=== PATIENT | female | born 1975 | race Two or more races ===

== ENCOUNTER 2016-07-19 01:51 | Emergency (ER) | payer MEDICAID, OTHER ==
[~2016-07-19] VITALS: Ht 154.9 cm; Wt 72.6 kg
[2016-07-19] MEDS ORDERED: KETOROLAC TROMETHAMINE 15 MG INJ IV ONE (02:15)
[2016-07-19] MEDS ORDERED: HYDROMORPHONE 1 MG/1 ML DISP.SYRIN IV ONE (02:15)
[2016-07-19] MEDS ORDERED: IV NORMAL SALINE 500 ML BAG IV ONE (02:15)
[2016-07-19] MEDS ORDERED: ONDANSETRON 4 MG/2 ML VIAL IV ONE (02:15)
[2016-07-19] MEDS ORDERED: ONDANSETRON 4 MG/2 ML VIAL ONE (02:32)
[2016-07-19] MEDS ORDERED: HYDROMORPHONE 1 MG/1 ML DISP.SYRIN ONE (02:32)
[2016-07-19] MEDS ORDERED: KETOROLAC TROMETHAMINE 30 MG INJ ONE (02:32)
[2016-07-19 02:44] LABS: ALANINE AMINOTRANSFERASE 18 U/L (14-59); ALBUMIN 3.8 g/dL (3.4-5.0); ALKALINE PHOSPHATASE 59 U/L (50-136); ASPARTATE AMINOTRANSFERASE 11 U/L (15-37); BILIRUBIN,DIRECT < 0.1 mg/dL (0.0-0.2); BILIRUBIN,TOTAL 0.2 mg/dL (0.2-1.0); CALCIUM 8.8 mg/dL (8.5-10.1); CARBON DIOXIDE 28 mmol/L (21-32); CHLORIDE 106 mmol/L (98-107); CREATININE 0.9 mg/dL (0.6-1.3); GFR 70 mL/min (>60); GLUCOSE 114 mg/dL (74-106); LIPASE 197 U/L (73-393); POTASSIUM 3.2 mmol/L (3.5-5.1); SODIUM SERUM 141 mmol/L (136-145); TOTAL PROTEIN, SERUM 7.2 g/dL (6.4-8.2); UREA NITROGEN, BLOOD 11 mg/dL (7-18)
[2016-07-19 02:45] LABS: BASOPHILS % (AUTO) 0.4 % (0.0-2.0); EOSINOPHILS # (AUTO) 0.4 K/uL (0.0-0.7); EOSINOPHILS % (AUTO) 4.1 % (0.0-7.0); HEMATOCRIT 35.8 % (37.0-47.0); HEMOGLOBIN 12.3 g/dL (12.0-16.0); LYMPHOCYTES # (AUTO) 3.1 K/uL (0.8-4.8); MEAN CORPUSCULAR HEMOGLOBIN 28.5 uug (27.0-31.0); MEAN CORPUSCULAR HGB CONC 34 g/dL (32.0-37.0); MEAN CORPUSCULAR VOLUME 83.1 fL (81.0-99.0); MONOCYTES # (AUTO) 0.6 K/uL (0.1-1.30); MONOCYTES % (AUTO) 5.9 % (0.0-11.0); NEUTROPHILS # (AUTO) 5.5 K/uL (1.8-8.9); NEUTROPHILS % (AUTO) 57.6 % (38.5-71.5); PLATELET COUNT (AUTO) 197 K/uL (150-450); RED CELL DISTRIBUTION WIDTH 13.5 % (11.5-14.5); WHITE BLOOD COUNT (AUTO) 9.6 K/uL (4.0-11.2)
[2016-07-19] MEDS ORDERED: POTASSIUM CHLORIDE 20 MEQ TAB.PRT.SR PO ONE (03:00)
[2016-07-19] MEDS ORDERED: POTASSIUM CHLORIDE 20 MEQ TAB.PRT.SR ONE (03:08)
--- NOTE | 2016-07-19 03:08 | NUR ---
Patient discharged to home in stable conditon. Written and verbal after care instructions given. Patient verbalizes understanding of instructions. Ambulated from ER with stable gait. All belongings with patient.
[2016-07-19 03:11] VITALS: BP 128/78
--- NOTE | 2016-07-19 03:12 | NUR ---
Patient will be driven home by daughter in private vehicle.
== END 2016-07-19 03:12 | disposition home or self-care (01) ==
LOC: ER 01:58
DX: K80.20 Calculus of gallbladder without cholecystitis without obstruction (principal); E87.6 Hypokalemia
CPT/HCPCS: 36415; 83690; 85025; A4663; J1170; J1885; J2405; J7030

== ENCOUNTER 2018-01-31 20:31 | Emergency (ER) | payer OTHER ==
[~2018-01-31] VITALS: Ht 157.5 cm; Wt 81.6 kg
[2018-01-31] MEDS ORDERED: ONDANSETRON 4 MG/2 ML VIAL ONE (21:14)
[2018-01-31] MEDS ORDERED: HYDROMORPHONE 1 MG/1 ML DISP.SYRIN ONE (21:14)
[2018-01-31] MEDS ORDERED: HYDROMORPHONE 1 MG/1 ML DISP.SYRIN IV ONE (21:15)
[2018-01-31] MEDS ORDERED: ONDANSETRON 4 MG/2 ML VIAL IV ONE (21:15)
[2018-01-31] MEDS ORDERED: IV NORMAL SALINE 1000 ML BAG IV ONE (21:15)
[2018-01-31 21:21] LABS: BASOPHILS # (AUTO) 0.1 K/uL (0.0-8.0); BASOPHILS % (AUTO) 0.5 % (0.0-2.0); EOSINOPHILS # (AUTO) 0.3 K/uL (0.0-0.7); EOSINOPHILS % (AUTO) 2.9 % (0.0-7.0); HEMATOCRIT 33.4 % (31.2-41.9); HEMOGLOBIN 11.1 g/dL (10.9-14.3); LYMPHOCYTES # (AUTO) 2.4 K/uL (20.0-40.0); MEAN CORPUSCULAR HEMOGLOBIN 27.5 uug (24.7-32.8); MEAN CORPUSCULAR HGB CONC 33 g/dL (32.3-35.6); MEAN CORPUSCULAR VOLUME 82.6 fL (75.5-95.3); MONOCYTES # (AUTO) 0.6 K/uL (2.0-10.0); MONOCYTES % (AUTO) 5.9 % (0.0-11.0); NEUTROPHILS # (AUTO) 6.8 K/uL (1.8-8.9); NEUTROPHILS % (AUTO) 66.7 % (38.5-71.5); PLATELET COUNT (AUTO) 224 K/uL (179-408); RED BLOOD CELL COUNT(AUTO) 4.05 MIL/uL (3.63-4.92); WHITE BLOOD COUNT (AUTO) 10.1 K/uL (3.8-11.8)
[2018-01-31 21:29] LABS: CARBON DIOXIDE 26 mmol/L (21-32); CHLORIDE 105 mmol/L (98-107); CREATININE 0.9 mg/dL (0.6-1.3); GLUCOSE 93 mg/dL (74-106); POTASSIUM 3.7 mmol/L (3.5-5.1); UREA NITROGEN, BLOOD 12 mg/dL (7-18)
[2018-01-31 21:35] LABS: ALANINE AMINOTRANSFERASE 48 U/L (14-59); ALKALINE PHOSPHATASE 64 U/L (50-136); ASPARTATE AMINOTRANSFERASE 19 U/L (15-37); BILIRUBIN,DIRECT < 0.1 mg/dL (0.0-0.2); BILIRUBIN,TOTAL 0.2 mg/dL (0.2-1.0); LIPASE 121 U/L (73-393); TOTAL PROTEIN, SERUM 7.2 g/dL (6.4-8.2)
[2018-01-31 21:37] LABS: *BILIRUBIN,URIN NEGATIVE (NEGATIVE); *BLOOD, URINE 1+ (NEGATIVE); *COLOR,URINE YELLOW (YELLOW); *KETONES,URINE NEGATIVE (NEGATIVE); *PROTEIN,URINE NEGATIVE (NEGATIVE); *URINE HCG, QUAL NEGATIVE (NEGATIVE); *UROBILINOGEN,URINE 0.2 E.U./dl (NORMAL); LEUKOCYTE ESTERASE ,URINE NEGATIVE (NEGATIVE); NITRITE, URINE NEGATIVE (NEGATIVE); PH,URINE 5.5 (5.0-8.0); UGLUCOSE NEGATIVE (NEGATIVE)
[2018-01-31 21:40] LABS: *CLARITY,URINE HAZY (CLEAR)
[2018-01-31 21:43] LABS: BACTERIA,URINE FEW /HPF (NONE SEEN); MUCUS,URINE FEW /LPF (0-FEW); SQUAMOUS EPITHELIAL CELL,UR MODERATE /HPF (NONE SEEN)
--- NOTE | 2018-01-31 21:53 | NUR ---
Patient to RADIOLOGY for CT via wheelchair.
--- NOTE | 2018-01-31 22:07 | NUR ---
Patient returned from RADIOLOGY, no acute distress noted.
--- NOTE | 2018-01-31 23:20 | NUR ---
Patient discharged to home in stable conditon. Written and verbal after care instructions given. Patient verbalizes understanding of instructions.
== END 2018-01-31 23:20 | disposition home or self-care (01) ==
LOC: ER 20:32
DX: K44.9 Diaphragmatic hernia without obstruction or gangrene (principal); M54.9 Dorsalgia, unspecified; F17.200 Nicotine dependence, unspecified, uncomplicated
CPT/HCPCS: 36415; 74176; 80048; 80076; 81001; 83690; 84703; 85025; 87086; 96374; 96375; 99285; J1170; J2405; A4663; J7030

== ENCOUNTER 2018-04-18 16:42 | Emergency (ER) | payer OTHER ==
[~2018-04-18] VITALS: Ht 154.9 cm; Wt 81.6 kg
--- NOTE | 2018-04-18 17:05 | NUR ---
DR VELASQUEZ AT THE BEDSIDE FOR MSE.
[2018-04-18 17:15] LABS: *BLOOD, URINE Trace-lysed (NEGATIVE); *CLARITY,URINE SLIGHTLY CLOUDY (CLEAR); *COLOR,URINE YELLOW (YELLOW); *KETONES,URINE 3+ (NEGATIVE); *PROTEIN,URINE 1+ (NEGATIVE); *URINE HCG, QUAL NEGATIVE (NEGATIVE); *UROBILINOGEN,URINE 0.2 E.U./dl (NORMAL); LEUKOCYTE ESTERASE ,URINE 2+ (NEGATIVE); NITRITE, URINE NEGATIVE (NEGATIVE); PH,URINE 5.5 (5.0-8.0); UGLUCOSE NEGATIVE (NEGATIVE)
[2018-04-18 17:23] LABS: *BILIRUBIN,URIN 1+ (NEGATIVE)
[2018-04-18] MEDS ORDERED: KETOROLAC TROMETHAMINE 30 MG INJ ONE (17:29)
[2018-04-18] MEDS ORDERED: KETOROLAC TROMETHAMINE 30 MG INJ IM ONE (17:30)
[2018-04-18 17:35] LABS: BACTERIA,URINE FEW /HPF (NONE SEEN); SQUAMOUS EPITHELIAL CELL,UR MODERATE /HPF (NONE SEEN); WBC,URINE 20-50 /HPF (0-3)
[2018-04-18] MEDS ORDERED: MORPHINE SULFATE 4 MG/1 ML DISP.SYRIN IM ONE (17:45)
[2018-04-18] MEDS ORDERED: MORPHINE SULFATE 4 MG/1 ML DISP.SYRIN ONE (17:48)
--- NOTE | 2018-04-18 18:07 | NUR ---
Patient discharged to home in stable conditon. Written and verbal after care instructions given. Patient verbalizes understanding of instructions.
[2018-04-18 18:08] VITALS: BP 123/77
== END 2018-04-18 18:09 | disposition home or self-care (01) ==
LOC: ER 16:43
DX: M54.9 Dorsalgia, unspecified (principal); F17.290 Nicotine dependence, other tobacco product, uncomplicated
CPT/HCPCS: 71045; 72100; 81001; 84703; 87086; 96372 ×2; 99284; 99406; J1885; J2270; 87077; A4663

== ENCOUNTER 2018-09-23 14:48 | Emergency (ER) | payer OTHER ==
[~2018-09-23] VITALS: Ht 165.1 cm; Wt 68.0 kg
[2018-09-23 15:09] LABS: *BILIRUBIN,URIN NEGATIVE (NEGATIVE); *CLARITY,URINE CLOUDY (CLEAR); *COLOR,URINE YELLOW (YELLOW); *KETONES,URINE TRACE (NEGATIVE); *UROBILINOGEN,URINE 0.2 E.U./dl (NORMAL); LEUKOCYTE ESTERASE ,URINE 1+ (NEGATIVE); NITRITE, URINE NEGATIVE (NEGATIVE); PH,URINE 5.5 (5.0-8.0); UGLUCOSE NEGATIVE (NEGATIVE)
[2018-09-23 15:13] LABS: *URINE HCG, QUAL NEGATIVE (NEGATIVE)
[2018-09-23] MEDS ORDERED: HYDROMORPHONE 1 MG/1 ML DISP.SYRIN IM ONE (15:15)
[2018-09-23] MEDS ORDERED: ONDANSETRON 4 MG/2 ML VIAL IM ONE (15:15)
[2018-09-23 15:19] LABS: *BLOOD, URINE TRACE (NEGATIVE)
[2018-09-23 15:21] LABS: BACTERIA,URINE MODERATE /HPF (NONE SEEN); MUCUS,URINE MODERATE /LPF (0-FEW); RBC,URINE 0-3 /HPF (0-3); SQUAMOUS EPITHELIAL CELL,UR MANY /HPF (NONE SEEN)
[2018-09-23] MEDS ORDERED: HYDROMORPHONE 2 MG/1 ML DISP.SYRIN ONE (15:25)
[2018-09-23] MEDS ORDERED: ONDANSETRON 4 MG/2 ML VIAL ONE (15:25)
--- NOTE | 2018-09-23 15:31 | NUR ---
Patient discharged to home in stable conditon. Written and verbal after care instructions given to patient. Patient verbalizes understanding of instructions.
== END 2018-09-23 15:35 | disposition home or self-care (01) ==
LOC: ER 14:48
DX: N39.0 Urinary tract infection, site not specified (principal); F17.200 Nicotine dependence, unspecified, uncomplicated
CPT/HCPCS: 81000; 81001; 84703; 96372 ×2; 99283; J1170; J2405; A4663

== ENCOUNTER 2018-09-24 15:43 | Emergency (ER) | payer OTHER ==
[~2018-09-24] VITALS: Ht 165.1 cm; Wt 68.0 kg
[2018-09-24] MEDS ORDERED: KETOROLAC TROMETHAMINE 30 MG INJ IM ONE (16:00)
[2018-09-24] MEDS ORDERED: CEFTRIAXONE 1 G VIAL IM ONE (16:00)
[2018-09-24] MEDS ORDERED: KETOROLAC TROMETHAMINE 60 MG INJ IM ONE (16:04)
[2018-09-24] MEDS ORDERED: CEFTRIAXONE 1 G VIAL ONE (16:04)
--- NOTE | 2018-09-24 16:06 | NUR ---
Patient discharged to home in stable conditon. Written and verbal after care instructions given. Patient verbalizes understanding of instructions. Ambulated from Er with stable gait. All belongings with patient.
[2018-09-24 16:07] VITALS: BP 117/71
== END 2018-09-24 16:12 | disposition home or self-care (01) ==
LOC: ER 15:44
DX: N12 Tubulo-interstitial nephritis, not specified as acute or chronic (principal); F17.200 Nicotine dependence, unspecified, uncomplicated
CPT/HCPCS: 96372 ×2; 99283; J0696; J1885; A4663

== ENCOUNTER 2020-10-10 17:33 | Emergency (ER) | payer MEDICAID, OTHER ==
[~2020-10-10] VITALS: Ht 154.9 cm; Wt 61.2 kg
--- NOTE | 2020-10-10 17:42 | NUR ---
Patient brought in by [id number] for bilateral rash to both lower extremities, patient does not appear to be ing any distress
--- NOTE | 2020-10-10 17:43 | NUR ---
MD at bedside for assessment, red circular areas noted to both lower legs
[2020-10-10] MEDS ORDERED: TRAM50TA2 PO (18:09)
[2020-10-10] MEDS ORDERED: NORCO PO (18:09)
[2020-10-10] MEDS ORDERED: KETOROLAC TROMETHAMINE 15 MG INJ ONE (18:43)
[2020-10-10] MEDS ORDERED: ACETAMINOPHEN ES 500 MG TABLET ONE (18:43)
[2020-10-10] MEDS ORDERED: ACETAMINOPHEN 325 MG TABLET PO ONE (19:00)
[2020-10-10] MEDS ORDERED: KETOROLAC TROMETHAMINE 15 MG INJ IM ONE (19:00)
[2020-10-10] MEDS ORDERED: MORPHINE SULFATE 4 MG/1 ML DISP.SYRIN IM ONE ×2 (19:15→20:00)
[2020-10-10] MEDS ORDERED: MORPHINE SULFATE 4 MG/1 ML DISP.SYRIN ONE ×2 (19:26→20:02)
[2020-10-10] MEDS ORDERED: NAPR500T6 PO (19:59)
[2020-10-10] MEDS ORDERED: MORPHINE SULFATE 2 MG/1 ML DISP.SYRIN ONE (20:02)
[2020-10-10 20:15] VITALS: BP 122/75
--- NOTE | 2020-10-10 20:15 | NUR ---
Patient discharged to home in stable condition. Written and verbal after care instructions given. Patient verbalizes understanding of instructions. Stressed follow up or return to ER for worsening s/s.
== END 2020-10-10 20:16 | disposition home or self-care (01) ==
LOC: ER 17:35
DX: M54.9 Dorsalgia, unspecified (principal); M54.2 Cervicalgia; G89.29 Other chronic pain; Z98.84 Bariatric surgery status
CPT/HCPCS: 96372 ×2; 99284; J1885; J2270 ×3; A4663; A9150

== ENCOUNTER 2021-05-05 22:48 | Emergency (ER) | payer MEDICAID ==
[~2021-05-05] VITALS: Ht 154.9 cm; Wt 63.5 kg
[~2021-05-05 22:48] MED LIST: NAPR500T6 PO; NORCO PO; TRAM50TA2 PO
[2021-05-05] MEDS ORDERED: MORPHINE SULFATE 4 MG/1 ML DISP.SYRIN ONE (23:59)
[2021-05-05] MEDS ORDERED: MORPHINE SULFATE 2 MG/1 ML DISP.SYRIN ONE (23:59)
[2021-05-06] MEDS ORDERED: MORPHINE SULFATE 4 MG/1 ML DISP.SYRIN IM ONE
[2021-05-06] MEDS ORDERED: ACETAMINOPHEN ES 500 MG TABLET PO ONE
[2021-05-06] MEDS ORDERED: KETOROLAC TROMETHAMINE 60 MG INJ IM ONE
[2021-05-06] MEDS ORDERED: HYDR-4209 PO (00:09)
[2021-05-06] MEDS ORDERED: NAPR-1164 PO (00:09)
== END 2021-05-06 00:15 | disposition home or self-care (01) ==
LOC: ER 22:57
DX: G89.29 Other chronic pain (principal); M54.50 Low back pain, unspecified; M54.2 Cervicalgia; F17.290 Nicotine dependence, other tobacco product, uncomplicated; Z79.899 Other long term (current) drug therapy
CPT/HCPCS: 96372 ×2; 99284; J1885; J2270 ×2; A4663; A9150

== ENCOUNTER 2021-05-10 19:58 | Emergency (ER) | payer MEDICAID ==
[~2021-05-10] VITALS: Ht 154.9 cm; Wt 63.5 kg
[~2021-05-10 19:58] MED LIST changes: +HYDR-4209 PO; +NAPR-1164 PO
--- NOTE | 2021-05-10 21:11 | NUR ---
Patient c/o worsening intermittent neck and back pain x1 week.
--- NOTE | 2021-05-10 21:25 | NUR ---
Dr. Grajeda on bedside for MSE.
[2021-05-10] MEDS ORDERED: HYDROMORPHONE 1 MG/1 ML DISP.SYRIN IM ONE (21:30)
[2021-05-10] MEDS ORDERED: ONDANSETRON ODT 4 MG TAB.RAPDIS SL ONE (21:30)
[2021-05-10] MEDS ORDERED: OXYC-128 PO (21:40)
--- NOTE | 2021-05-10 21:51 | NUR ---
Patient discharged to home in stable condition. Written and verbal after care instructions given. Patient verbalizes understanding of instructions. Stressed follow up or return to ER for worsening s/s. Patient ambulated from the ER with steady gait. All belongings with patient.
[2021-05-10] MEDS ORDERED: ONDANSETRON ODT 4 MG TAB.RAPDIS ONE (21:55)
[2021-05-10] MEDS ORDERED: HYDROMORPHONE 2 MG/1 ML DISP.SYRIN ONE (21:55)
[2021-05-10 22:02] VITALS: BP 140/73
== END 2021-05-10 21:51 | disposition home or self-care (01) ==
LOC: ER 19:59
DX: G89.29 Other chronic pain (principal); M54.50 Low back pain, unspecified; F17.290 Nicotine dependence, other tobacco product, uncomplicated; Z90.49 Acquired absence of other specified parts of digestive tract; Z79.899 Other long term (current) drug therapy
CPT/HCPCS: 96372; 99283; J1170; A4663; Q0162

== ENCOUNTER 2021-08-12 19:26 | Emergency (ER) | payer MEDICAID ==
[~2021-08-12] VITALS: Ht 157.5 cm; Wt 63.5 kg
[~2021-08-12 19:26] MED LIST changes: +OXYC-128 PO
--- NOTE | 2021-08-12 19:54 | NUR ---
pt ambulated to room 4b states she is here for chronic back pain.
--- NOTE | 2021-08-12 20:21 | NUR ---
Dr. Castro in room for PUNEET.
[2021-08-12] MEDS ORDERED: ACETAMINOPHEN ES 500 MG TABLET ONE (20:30)
[2021-08-12] MEDS ORDERED: KETOROLAC TROMETHAMINE 30 MG INJ IM ONE (20:30)
[2021-08-12] MEDS ORDERED: MORPHINE SULFATE 4 MG/1 ML DISP.SYRIN IM ONE (20:30)
[2021-08-12] MEDS ORDERED: KETOROLAC TROMETHAMINE 30 MG INJ ONE (20:30)
[2021-08-12] MEDS ORDERED: ACETAMINOPHEN ES 500 MG TABLET PO ONE (20:30)
[2021-08-12] MEDS ORDERED: MORPHINE SULFATE 4 MG/1 ML DISP.SYRIN ONE (20:31)
--- NOTE | 2021-08-12 20:57 | NUR ---
pt states she has less pain and is more comfortable.
[2021-08-12 20:58] LABS: *BILIRUBIN,URIN NEGATIVE (NEGATIVE); *BLOOD, URINE NEGATIVE (NEGATIVE); *CLARITY,URINE HAZY (CLEAR); *COLOR,URINE YELLOW (YELLOW); *KETONES,URINE 1+ (NEGATIVE); *UROBILINOGEN,URINE 0.2 E.U./dl (NORMAL); LEUKOCYTE ESTERASE ,URINE 1+ (NEGATIVE); NITRITE, URINE NEGATIVE (NEGATIVE); PH,URINE 5.5 (5.0-8.0); UGLUCOSE NEGATIVE (NEGATIVE)
[2021-08-12 21:09] LABS: *URINE HCG, QUAL NEGATIVE (NEGATIVE); BACTERIA,URINE FEW /HPF (NONE SEEN); RBC,URINE 0-3 /HPF (0-3); SQUAMOUS EPITHELIAL CELL,UR MODERATE /HPF (NONE SEEN)
[2021-08-12] MEDS ORDERED: HYDR-4209 PO (23:06)
[2021-08-12] MEDS ORDERED: NAPR-1164 PO (23:06)
[2021-08-12 23:22] VITALS: BP 130/70
== END 2021-08-12 23:22 | disposition home or self-care (01) ==
LOC: ER 19:27
DX: M54.50 Low back pain, unspecified (principal); G89.29 Other chronic pain; F17.210 Nicotine dependence, cigarettes, uncomplicated; Z98.84 Bariatric surgery status
CPT/HCPCS: 81001; 84703; 87086; 96372 ×2; 99284; J1885; J2270; A4663; A9150

== ENCOUNTER 2021-11-04 18:06 | Emergency (ER) | payer SELFPAY ==
--- NOTE | 2021-11-04 18:32 | NUR ---
1ST CALL NO ANSWER.
--- NOTE | 2021-11-04 18:54 | NUR ---
2ND CALL NO ANSWER
--- NOTE | 2021-11-04 19:03 | NUR ---
3RD CALL NO ANSWER. PATIENT LEFT WITHOUT BEING TRAIGED.
[2021-11-05] MEDS ORDERED: FERR325T23 PO (00:54)
[2021-11-05] MEDS ORDERED: OXYC-128 PO (00:54)
[2021-11-05] MEDS ORDERED: ONDA4TAB5 PO (00:54)
== END 2021-11-04 19:04 | disposition left against medical advice (07) ==
LOC: ER 18:13
DX: Z53.21 Procedure and treatment not carried out due to patient leaving prior to being seen by health care provider (principal)

== ENCOUNTER 2021-11-04 20:48 | Emergency (ER) | payer MEDICAID ==
[~2021-11-04] VITALS: Ht 162.6 cm; Wt 65.8 kg
--- NOTE | 2021-11-04 21:52 | NUR ---
pt in room 4 b c/o back pain.
--- NOTE | 2021-11-04 22:34 | NUR ---
Dr. Grajeda at bedside for MSE.
[2021-11-04] MEDS ORDERED: KETOROLAC TROMETHAMINE 30 MG INJ IVP ONE (22:45)
[2021-11-04] MEDS ORDERED: diphenhydrAMINE 50 MG/1 ML VIAL IV ONE (22:45)
[2021-11-04] MEDS ORDERED: IV NS 1000 ML 1,000 ML IV ONE (22:45)
[2021-11-04] MEDS ORDERED: METOCLOPRAMIDE HCL 10 MG/2 ML VIAL IV ONE (22:45)
--- NOTE | 2021-11-04 22:56 | NUR ---
attempted iv x2 pt with small veins 22 g iv. pt does not want an iv. informed Dr. Grajeda.
[2021-11-04] MEDS ORDERED: diphenhydrAMINE 25 MG CAP PO ONE ×2 (23:00→23:01)
[2021-11-04] MEDS ORDERED: METOCLOPRAMIDE HCL 10 MG TABLET PO ONE (23:00)
[2021-11-04] MEDS ORDERED: KETOROLAC TROMETHAMINE 60 MG INJ IM ONE ×2 (23:00→23:02)
[2021-11-04] MEDS ORDERED: METOCLOPRAMIDE HCL 10 MG TABLET ONE (23:01)
--- NOTE | 2021-11-04 23:06 | NUR ---
meds were given po and im. as pt declined further iv attempt.
[2021-11-05 00:08] LABS: MEAN CORPUSCULAR HEMOGLOBIN 20.5 uug (24.7-32.8); MEAN CORPUSCULAR VOLUME 66.6 fL (75.5-95.3); PLATELET COUNT (AUTO) 238 K/uL (179-408)
[2021-11-05] MEDS ORDERED: ONDANSETRON HCL 4 MG TABLET ONE (00:09)
[2021-11-05] MEDS ORDERED: HYDROMORPHONE 1 MG/1 ML DISP.SYRIN ONE (00:09)
[2021-11-05] MEDS ORDERED: HYDROMORPHONE 2 MG/1 ML DISP.SYRIN ONE (00:10)
[2021-11-05 00:11] LABS: CREATININE 0.8 mg/dL (0.6-1.3); POTASSIUM 3.8 mmol/L (3.5-5.1)
[2021-11-05] MEDS ORDERED: HYDROMORPHONE 1 MG/1 ML DISP.SYRIN IM ONE (00:15)
[2021-11-05] MEDS ORDERED: ONDANSETRON HCL 4 MG TABLET PO ONE (00:15)
[2021-11-05 00:37] LABS: IRON, SERUM 16 ug/dL (50-175)
[2021-11-05] MEDS ORDERED: FERR325T23 PO (00:54)
[2021-11-05] MEDS ORDERED: ONDA4TAB5 PO (00:54)
[2021-11-05] MEDS ORDERED: OXYC-128 PO (00:54)
[2021-11-05] MEDS ORDERED: CYANOCOBALAMIN 1000 MCG/ML VIAL ONE (00:59)
[2021-11-05] MEDS ORDERED: CYANOCOBALAMIN 1000 MCG/ML VIAL IM ONE (01:00)
[2021-11-05 01:06] VITALS: BP 130/76
== END 2021-11-05 01:06 | disposition home or self-care (01) ==
LOC: ER 20:51
DX: S16.1XXA Strain of muscle, fascia and tendon at neck level, initial encounter (principal); X58.XXXA Exposure to other specified factors, initial encounter; Y92.89 Other specified places as the place of occurrence of the external cause; Z98.84 Bariatric surgery status; Z90.49 Acquired absence of other specified parts of digestive tract; D50.9 Iron deficiency anemia, unspecified
CPT/HCPCS: 99284; 80048; 82607; 83735; 85025; 36415 ×2; 96372 ×2; 83550; Q0163; J1885; J7040; J3420; J1170 ×2; A4663; J8597; Q0162

== ENCOUNTER 2021-12-27 00:32 | Emergency (ER) | payer MEDICAID ==
[~2021-12-27] VITALS: Ht 154.9 cm; Wt 65.8 kg
[~2021-12-27 00:32] MED LIST changes: +FERR325T23 PO; +ONDA4TAB5 PO
--- NOTE | 2021-12-27 00:45 | NUR ---
Patient walked into ER c/o worsening chronic back pain. Patient denies trauma to area.
--- NOTE | 2021-12-27 01:03 | NUR ---
Dr. Grajeda on bedside for MSE.
[2021-12-27] MEDS ORDERED: ONDANSETRON ODT 4 MG TAB.RAPDIS ONE (01:09)
[2021-12-27] MEDS ORDERED: HYDROMORPHONE 2 MG/1 ML DISP.SYRIN ONE (01:09)
[2021-12-27] MEDS ORDERED: OXYC-128 PO (01:14)
[2021-12-27] MEDS ORDERED: ONDANSETRON HCL 4 MG TABLET PO ONE (01:15)
[2021-12-27] MEDS ORDERED: HYDROMORPHONE 1 MG/1 ML DISP.SYRIN IM ONE (01:15)
--- NOTE | 2021-12-27 01:16 | NUR ---
Patient discharged to home in stable condition. Written and verbal after care instructions given. Patient verbalizes understanding of instructions. Stressed follow up or return to ER for worsening s/s. Patient ambulated fr the ER with steady gait. All belongings with patient.
[2021-12-27 01:17] VITALS: BP 108/72
== END 2021-12-27 01:17 | disposition home or self-care (01) ==
LOC: ER 00:35
DX: G89.29 Other chronic pain (principal); M54.50 Low back pain, unspecified; Z98.84 Bariatric surgery status; Z90.49 Acquired absence of other specified parts of digestive tract
CPT/HCPCS: 99283; 96372; J1170; A4663; Q0162

== ENCOUNTER 2022-04-06 19:49 | Emergency (ER) | payer MEDICAID ==
[~2022-04-06] VITALS: Ht 154.9 cm; Wt 68.0 kg
--- NOTE | 2022-04-06 20:00 | NUR ---
Dr. Howe at bedside for MSE.
[2022-04-06] MEDS ORDERED: OXYC-128 PO (20:14)
[2022-04-06] MEDS ORDERED: CYCL10TA9 PO (20:14)
[2022-04-06] MEDS ORDERED: HYDROMORPHONE HCL 2 MG TABLET PO ONE (20:15)
[2022-04-06] MEDS ORDERED: KETOROLAC TROMETHAMINE 30 MG INJ IM ONE (20:15)
[2022-04-06] MEDS ORDERED: CYCLOBENZAPRINE HCL 10 MG TABLET PO ONE (20:15)
[2022-04-06] MEDS ORDERED: CYCLOBENZAPRINE HCL 10 MG TABLET ONE (20:24)
[2022-04-06] MEDS ORDERED: KETOROLAC TROMETHAMINE 30 MG INJ ONE (20:24)
[2022-04-06] MEDS ORDERED: HYDROMORPHONE HCL 2 MG TABLET ONE (20:25)
--- NOTE | 2022-04-06 20:29 | NUR ---
Patient discharged to home in stable condition. Written and verbal after care instructions given. Patient verbalizes understanding of instructions. Stressed follow up or return to ER for worsening s/s. Patient out of ER with steady gait, no acute signs of distress, VSS, all belongings taken, instructed not to drive, to be driven home by via private vehicle.
[2022-04-06 20:30] VITALS: BP 107/72
== END 2022-04-06 20:31 | disposition home or self-care (01) ==
LOC: ER 19:55
DX: G89.29 Other chronic pain (principal); M54.50 Low back pain, unspecified
CPT/HCPCS: 99283; 96372; J1885; A4663

== ENCOUNTER 2022-04-28 21:55 | Emergency (ER) | payer MEDICAID ==
[~2022-04-28] VITALS: Ht 154.9 cm; Wt 68.0 kg
[~2022-04-28 21:55] MED LIST changes: +CYCL10TA9 PO
--- NOTE | 2022-04-28 22:18 | NUR ---
Dr. Howe evaluating patient at bedside. MSE in progress.
[2022-04-28] MEDS ORDERED: KETOROLAC TROMETHAMINE 30 MG INJ IM ONE (22:30)
[2022-04-28] MEDS ORDERED: CYCLOBENZAPRINE HCL 10 MG TABLET PO ONE (22:30)
[2022-04-28] MEDS ORDERED: ONDANSETRON ODT 4 MG TAB.RAPDIS SL ONE (22:30)
[2022-04-28] MEDS ORDERED: HYDROMORPHONE HCL 2 MG TABLET PO ONE ×2 (22:30→23:30)
[2022-04-28] MEDS ORDERED: CYCLOBENZAPRINE HCL 10 MG TABLET ONE (22:35)
[2022-04-28] MEDS ORDERED: KETOROLAC TROMETHAMINE 30 MG INJ ONE (22:35)
[2022-04-28] MEDS ORDERED: ONDANSETRON HCL 4 MG TABLET ONE (22:35)
[2022-04-28] MEDS ORDERED: HYDROMORPHONE HCL 2 MG TABLET ONE ×2 (22:36→23:21)
[2022-04-28 23:14] LABS: *BILIRUBIN,URIN NEGATIVE (NEGATIVE); *BLOOD, URINE NEGATIVE (NEGATIVE); *CLARITY,URINE CLEAR (CLEAR); *COLOR,URINE YELLOW (YELLOW); *KETONES,URINE TRACE (NEGATIVE); *UROBILINOGEN,URINE 0.2 E.U./dl (NORMAL); LEUKOCYTE ESTERASE ,URINE NEGATIVE (NEGATIVE); NITRITE, URINE NEGATIVE (NEGATIVE); PH,URINE 5.5 (5.0-8.0); UGLUCOSE NEGATIVE (NEGATIVE)
[2022-04-28 23:16] LABS: *URINE HCG, QUAL NEGATIVE (NEGATIVE)
--- NOTE | 2022-04-28 23:28 | NUR ---
Patient taken to CT via gurney.
[2022-04-29] MEDS ORDERED: OXYC-128 PO
[2022-04-29] MEDS ORDERED: CYCL10TA9 PO
--- NOTE | 2022-04-29 03:04 | NUR ---
Patient discharged to home in stable condition. Written and verbal after care instructions given. Patient verbalizes understanding of instructions. Given copies of CT result. Stressed follow up or return to ER for worsening s/s.
[2022-04-29 03:05] VITALS: BP 115/65
== END 2022-04-29 03:06 | disposition home or self-care (01) ==
LOC: ER 21:58
DX: G89.29 Other chronic pain (principal); M54.50 Low back pain, unspecified; M54.2 Cervicalgia; Z87.891 Personal history of nicotine dependence; Z98.84 Bariatric surgery status
CPT/HCPCS: 99285; 74176; 81003; 84703; 96372; J1885; A4663; Q0162

== ENCOUNTER 2023-01-04 12:37 | Emergency (ER) | payer MEDICAID, OTHER ==
[~2023-01-04] VITALS: Ht 154.9 cm; Wt 68.0 kg
[2023-01-04 12:46] VITALS: O2SAT 98
[2023-01-04] MEDS ORDERED: HYDROMORPHONE 1 MG/1 ML DISP.SYRIN ONE ×2 (13:37→16:37)
[2023-01-04] MEDS ORDERED: HYDROMORPHONE 1 MG/1 ML DISP.SYRIN IM ONE ×2 (13:45→16:30)
[2023-01-04 13:47] LABS: BASOPHILS % (AUTO) 0.7 % (0.0-2.0); EOSINOPHILS # (AUTO) 0.1 K/uL (0.0-0.7); EOSINOPHILS % (AUTO) 2.4 % (0.0-7.0); HEMATOCRIT 27.3 % (31.2-41.9); HEMOGLOBIN 8.9 g/dL (10.9-14.3); LYMPHOCYTES # (AUTO) 1.4 K/uL (0.8-4.8); MEAN CORPUSCULAR HEMOGLOBIN 24.6 uug (24.7-32.8); MEAN CORPUSCULAR HGB CONC 33 g/dL (32.3-35.6); MEAN CORPUSCULAR VOLUME 75.4 fL (75.5-95.3); MONOCYTES # (AUTO) 0.4 K/uL (0.1-1.30); MONOCYTES % (AUTO) 7.9 % (0.0-11.0); NEUTROPHILS # (AUTO) 3.1 K/uL (1.8-8.9); PLATELET COUNT (AUTO) 211 K/uL (179-408); RED BLOOD CELL COUNT(AUTO) 3.62 MIL/uL (3.63-4.92); RED CELL DISTRIBUTION WIDTH 15.9 % (12.3-17.7)
[2023-01-04 13:49] LABS: DIFFERENTIAL COMMENT 1
[2023-01-04 13:55] LABS: CALCIUM 8.6 mg/dL (8.5-10.1); CREATININE 0.7 mg/dL (0.6-1.3)
[2023-01-04 14:00] LABS: ALBUMIN 3.4 g/dL (3.4-5.0); BILIRUBIN,DIRECT 0.1 mg/dL (0.0-0.2); BILIRUBIN,TOTAL 0.3 mg/dL (0.2-1.0); TOTAL PROTEIN, SERUM 6.6 g/dL (6.4-8.2)
[2023-01-04] MEDS ORDERED: OXYC-128 PO (15:56)
== END 2023-01-04 17:00 | disposition home or self-care (01) ==
LOC: ER 12:38
DX: G89.29 Other chronic pain (principal); M54.50 Low back pain, unspecified; R10.2 Pelvic and perineal pain; F17.210 Nicotine dependence, cigarettes, uncomplicated; Z79.899 Other long term (current) drug therapy
CPT/HCPCS: 99284; 80076; 80048; 85025; 84702; 96372 ×2; J1170 ×2; 36415; A4663

== ENCOUNTER 2024-06-06 20:12 | Emergency (ER) | payer OTHER ==
[~2024-06-06] VITALS: Ht 154.9 cm; Wt 72.6 kg
[2024-06-06 21:15] VITALS: BP 110/82; TEMP 98.1; O2SAT 97
== END 2024-06-06 21:18 | disposition left against medical advice (07) ==
LOC: ER 20:18
DX: R07.9 Chest pain, unspecified (principal); Z53.21 Procedure and treatment not carried out due to patient leaving prior to being seen by health care provider
CPT/HCPCS: A4606; A4663